=== PATIENT | female | born 1985 | race African-American/Black ===

== ENCOUNTER 2016-11-27 02:19 | Emergency (ER) | payer SELFPAY ==
[~2016-11-27] VITALS: Ht 175.3 cm; Wt 90.7 kg
[~2016-11-27 02:19] MED LIST: CALC1TAB13 PO; CPR500T PO; HYDR1TAB PO; NITR-65 PO; PHEN200T27 PO; PREN1TAB25 PO; depo provera
--- OUTSIDE RECORDS SUMMARY | 2016-11-27 02:25 | XMS REPORT ---
Author Author DREAD PEPE [facility] eClinicalWorks Address Unknown Phone Unavailable Care Team Providers Care Visual Merchandising Director Name Role Phone DREAD PEPE Unavailable Allergies, Adverse Reactions, Alerts Substance Reaction Event Type N.K.D.A. Info Not Available Non Drug Allergy Problems Problem Type Condition Code Onset Dates Condition Status Assessment Unprotected sexual intercourse Z72.51 Active Problem Stress incontinence N39.3 Active Assessment Vaginal discharge N89.8 Active Problem Umbilical hernia without obstruction and without gangrene K42.9 Active Assessment Vaginal itching L29.8 Active Assessment Stress incontinence N39.3 Active Assessment Pelvic pain R10.2 Active Assessment Umbilical hernia without obstruction and without gangrene K42.9 Active Medications Medication Code System Code Instructions Start Date End Date Status Dosage Flagyl [facility] [address]-37 500 MG Orally 2 times a day Mar 12, 2015 Mar 19, 2015 1 tablet Procedures Procedure Coding System Code Date TRICHOMONAS VAGIN, DIR PROBE CPT-4 93324 Mar 12, 2015 URINALYSIS, AUTO, W/O SCOPE CPT-4 94277 Mar 12, 2015 CULTURE, BACTERIA, OTHER CPT-4 83599 Mar 12, 2015 Office Visit, Est Pt., Level 4 CPT-4 45782 Mar 12, 2015 Vital Signs Date/Time: Mar 12, 2015 Temperature 97.7 F Weight 195.8 lbs Height 69 in BMI 28.91 Index Blood Pressure Diastolic 68 mmHg Blood Pressure Systolic 122 mmHg Cardiac Monitoring Heart Rate 74 bpm Results Name Result Date Reference Range Unit Abnormality Flag TRICHOMONAS (IN HOUSE) ----TRICHOMONAS Positive 20150312 ----Control + 20150312 ----Lot # [id number] ----Exp date 20150312 UA LONG DIP (IN HOUSE) ----OLIVER Negative 20150312 ----GLU Negative 20150312 ----SG >=1.030 20150312 ----KET Negative 20150312 ----pH 6.0 20150312 ----Protein Negative 20150312 ----BLO Negative 20150312 ----TERRIE Negative 20150312 ----Color Dark Yellow 20150312 ----Odor None 20150312 ----Exp date 20150312 ----URO 0.2 20150312 ----NIT Negative 20150312 ----Clarity Clear 20150312 ----Lot # [id number] Summary Purpose eClinicalWorks Submission
--- OUTSIDE RECORDS SUMMARY | 2016-11-27 02:26 | XMS REPORT ---
Author Author DASIA MONROE Organization eClinicalWorks Address Unknown Phone Unavailable Care Team Providers Care Laborer Sawmill Name Role Phone DASIA MONROE CP Unavailable Allergies, Adverse Reactions, Alerts Substance Reaction Event Type N.K.D.A. Info Not Available Non Drug Allergy Problems Problem Type Condition Code Onset Dates Condition Status Problem Stress incontinence N39.3 Active Assessment Vaginal discharge N89.8 Active Problem Umbilical hernia without obstruction and without gangrene K42.9 Active Assessment infection, trichomonal A59.00 Active Assessment Other specified bacterial agents as the cause of diseases classified elsewhere B96.89 Active Assessment Acute vaginitis N76.0 Active Medications Medication Code System Code Instructions Start Date End Date Status Dosage Metronidazole [facility] [address]-83 500 MG Orally bid Jan 11, 2016 Jan 21, 2016 1 tablet Procedures Procedure Coding System Code Date PITTS VAG, DNA, DIR PROBE CPT-4 73952 Jan 11, 2016 No Charge CPT-4 74142 Jan 11, [address] [facility] CPT-4 NOBLL Jan 11, 2016 Office Visit, Est Pt., Level 3 CPT-4 43051 Jan 11, 2016 Vital Signs Date/Time: Jan 11, 2016 Cardiac Monitoring Heart Rate 80 bpm Weight 184.0 lbs Height 69 in BMI 27.17 Index Blood Pressure Diastolic 76 mmHg Blood Pressure Systolic 120 mmHg Results Name Result Date Reference Range Unit Abnormality Flag TRICHOMONAS (IN HOUSE) ----TRICHOMONAS POSITIVE 20160111 ----Control + 20160111 ----Lot # [id number] ----Exp date 20160111 BACTERIAL VAGINOSIS (IN HOUSE) ----Exp date 20160111 ----Control + 20160111 ----Lot # [id number] ----RESULTS POSITIVE 20160111 Summary Purpose eClinicalWorks Submission
--- NOTE | 2016-11-27 02:46 | ED Psychosocial ---
General Chief Complaint: Cardiac/General Problems Stated Complaint: SOA DIZZY Source: patient, spouse Exam Limitations: no limitations History of Present Illness Time seen by provider: 02:40 Initial Comments Patient presents to ER with a chief complaint of after getting off work around midnight and heading home she started feeling her heart beating in her chest and a little short of breath and she couldn't get it under control for about an hour. She says she's had episodes like this about a week or 2 ago she began having these for about a month now. She is not taking any medicines form has no radius medical history nor coronary history. No family history of early-onset coronary disease and she does not have blood pressure, thyroid, diabetes disease. She does smoke about a quarter pack a day but does not drink or use drugs. She's never been diagnosed formally with any anxiety or depression. She had no nausea, diarrhea, constipation, dysuria, discharge, pain. Patient states she feels safe at home. Allergies and Home Medications Allergies Coded Allergies: NKANo Known Allergies (Unverified Allergy, Mild, 08/07/08) No Known Drug Allergies (Verified , 11/28/06) Home Medications Calcium/Fa/Multivits-Min 1 Tab.chew Tab.chew, 1 TAB.CHEW PO DAILY, (Reported) Hydroxyzine Pamoate 25 Mg Capsule, 25 MG PO Q6H PRN for ANXIETY, #20 Ref 0 Prescribed by: FARSHAD GARVEY on 11/27/16 0257 Vit#96/Ferrous Fum/Fa 1 Each Tablet, 1 EACH PO DAILY, (Reported) Constitutional: No chills, No diaphoresis, No fever, No malaise EENTM: No ear discharge, No ear pain, No eye pain Respiratory: No cough, No dyspnea on exertion, No orthopnea, No phlegm, short of breath, No wheezing Cardiovascular: No chest pain, No edema, No Hx of Intervention, palpitations, No syncope, No vascular heart diseas Gastrointestinal: No abdominal pain, No constipation, No diarrhea, No heartburn , No loss of appetite, No nausea Genitourinary: No discharge, No dysuria : No (tubal ligation) Control/STD Prophylaxis: Other (tubal ligation) Musculoskeletal: No back pain, No joint pain Skin: No pruritus, No rash Psychiatric/Neurological: Denies Headache, Denies Numbness, Denies Paresthesia Past Dlaobqt-Jbuftf-Edpyer Hx Patient Social History Alcohol Use: Denies Use Recreational Drug Use: No Smoking Status: Current Everyday Smoker (quarter pack per day) Recent Foreign Travel: No Contact w/Someone Who Travel: No Immunizations Up To Date Date of Influenza Vaccine: Apr 27, 2012 Physical Exam Vital Signs Capillary Refill : General Appearance: WD/WN, no apparent distress HEENT: PERRL/EOMI, normal ENT inspection, pharynx normal Neck: non-tender, supple, normal inspection Respiratory: chest non-tender, lungs clear, normal breath sounds Cardiovascular: normal peripheral pulses, regular rate, rhythm, no edema, no murmur Peripheral Pulses: 2+ Radial Pulses (R), 2+ Radial Pulses (L) Gastrointestinal: normal bowel sounds, non tender, soft Extremities: non-tender, no pedal edema, normal capillary refill Neurologic/Psychiatric: alert, normal mood/affect, oriented x 3 Appearance/Memory: appropriate appearance, appropriate insight, neat, no memory impairment Behavior/Eye Contact: cooperative, good eye contact, normal speech Skin: normal color, warm/dry Progress/Results/Core Measures Results/Orders My Orders Orders - FARSHAD GARVEY Ekg Tracing (11/27/16 02:43) Chest 1 View, Ap/Pa Only (11/27/16 02:43) Progress Note : Time: 02:49 Progress Note Presents with a classic appearing panic attack. We'll get an EKG that she had palpitations and a chest x-ray was she was having shortness of breath. If these are normal we'll go ahead and let her have Vistaril and some counseling on cognitive behavioral techniques and recommend her follow up with a primary care physician. ECG Initial ECG Impression Date: Nov 27, 2016 Initial ECG Impression Time: 02:35 Initial ECG Rate: 83 Initial ECG Rhythm: Normal Sinus Initial ECG Intervals: Normal Initial ECG Impression: Normal, Nonspecific Changes Initial ECG Comparisson: No Previous ECG Available Comment No ST elevation or depression. Diagnostic Imaging Diagonstic Imaging: Xray Plain Films/CT/US/NM/MRI: chest Comments No acute cardiopulmonary processes noted. Reviewed: Reviewed by Me Departure Impression Impression: Primary Impression: Panic attack Disposition: 01 HOME, SELF-CARE Condition: Stable Departure-Patient Inst. Decision time for Depature: 02:55 Referrals: NO,LOCAL PHYSICIAN (PCP/Family) Primary Care Physician Patient Instructions: Anxiety, Adult (DC) Add. Discharge Instructions: If you notice these symptoms coming on again such as pounding heart, feeling of loss of control, narrowing vision, feeling panicked then you should remove yourself to a quiet dark location and focus on something that she can control such as or deep breathing exercises like we discussed. Take one tablet of the Vistaril every 6 hours as needed to help with the symptoms. Plan to follow up with her primary care physician in the next couple weeks for further management if this becomes more of a routine pattern. All discharge instructions reviewed with patient and/or family. Voiced understanding. Scripts Hydroxyzine Pamoate (Vistaril) 25 Mg Capsule 25 MG PO Q6H Y for ANXIETY, #20 CAP 0 Refills Prov: FARSHAD GARVEY 11/27/16 FARSHAD GARVEY Nov 27, 2016 02:46
[2016-11-27] MEDS ORDERED: HYDR25CA PO (02:57)
[2016-11-27] MEDS ORDERED: RX-HYDROXYZINE PAMOATE 25 MG CAP #4 PO STA (02:58)
[2016-11-27 03:06] VITALS: BP 162/117
--- NOTE | 2016-11-27 06:46 | Diagnostic Imaging Report ---
Clinical indication: Patient has flutter feeling in chest. Exam: Portable chest x-ray upright view. Comparisons: None. Findings: Lungs/pleura: Lungs are clear. There is no pneumothorax. There is no pleural effusion. Mediastinum: Unremarkable. Pulmonary vasculature: Unremarkable. Heart: Cardiac silhouette size appears mildly enlarged. Bones/extrathoracic soft tissue: Unremarkable. Impression: 1: Cardiac silhouette size appears mildly enlarged. Chest x-ray 2 views would help better evaluate. 2: Otherwise, there is no radiographic evidence of acute cardiopulmonary process. Dictated by: Dictated on workstation # [id number]
== END 2016-11-27 03:19 | disposition home or self-care (01) ==
LOC: EDUNIT# 02:19 → ER 02:22
DX: F41.0 Panic disorder [episodic paroxysmal anxiety] (principal); F17.210 Nicotine dependence, cigarettes, uncomplicated
CPT/HCPCS: 71010; 93005; 99283

== ENCOUNTER 2017-08-07 08:45 | Emergency (ER) | payer SELFPAY ==
[~2017-08-07] VITALS: Ht 175.3 cm; Wt 98.9 kg
[~2017-08-07 08:45] MED LIST changes: +HYDR25CA PO
--- NOTE | 2017-08-07 09:20 | ED EENT ---
History of Present Illness General Chief Complaint: Oral/Throat Problems Stated Complaint: THROAT SORE Source: patient Exam Limitations: no limitations History of Present Illness Date Seen by Provider: August 07, 2017 Time Seen by Provider: 09:06 Initial Comments The patient presents to the ER by private conveyance with a chief complaint of aching up this morning with difficulty swallowing pain in her throat, hoarseness that started sometime yesterday but got worse significantly today. She has taken Excedrin as well as TheraFlu for sore throat with Tylenol. She felt hot like she had fevers yesterday and some today but no chills or sweats. She had some nausea and vomited in the lobby. She's not having any difficulty breathing, or history of asthma. No sick contacts. She does not have any immune altering disease. She denies rash. Allergies and Home Medications Allergies Coded Allergies: NKANo Known Allergies (Unverified Allergy, Mild, 08/07/08) No Known Drug Allergies (Verified , 11/28/06) Home Medications Calcium/Fa/Multivits-Min 1 Tab.chew Tab.chew, 1 TAB.CHEW PO DAILY, (Reported) Hydroxyzine Pamoate 25 Mg Capsule, 25 MG PO Q6H PRN for ANXIETY Prescribed by: FARSHAD GARVEY on 11/27/16 0257 Vit#96/Ferrous Fum/Fa 1 Each Tablet, 1 EACH PO DAILY, (Reported) Patient Home Medication List Home Medication List Reviewed: Yes Review of Systems Constitutional: chills; No diaphoresis; fever, malaise, other (generalized myalgias) Eyes: Denies Blindness, Denies Blurred Vision, Denies Drainage Ears: Denies Dizziness, Denies Pain Nose: denies clots, denies congestion, denies epistaxis Mouth: denies clots, denies pain, denies swelling Throat: pain, swelling, discharge; denies neck stiffness; hoarse; denies aphonia; muffled, painful swallowing Respiratory: No hemoptysis, No orthopnea, No phlegm, No short of breath Cardiovascular: No chest pain, No edema Gastrointestinal: No abdominal pain, No constipation; nausea, vomiting Past Znjdwvs-Nbycmx-Izkpxd Hx Patient Social History Alcohol Use: Regular Use Alcohol Beverage of Choice: Wine Recreational Drug Use: No Smoking Status: Current Everyday Smoker Type Used: Cigarettes Recent Foreign Travel: No Contact w/Someone Who Travel: No Recent Hopitalizations: No Physical Abuse: No Sexual Abuse: No Mistreated: No Fear: No Immunizations Up To Date Date of Influenza Vaccine: Apr 27, 2012 Past Medical History Surgeries: No Respiratory: No Cardiac: No Neurological: No Sexually Transmitted Disease: Yes (HERPES ) Gastrointestinal: No Musculoskeletal: No Endocrine: No HEENT: No Cancer: No Psychosocial: No Nursing Suicide Risk Score: 0 Integumentary: No Blood Disorders: Yes Physical Exam Vital Signs Vital Signs - First Documented 08/07/17 09:10 Temp 98.3 Pulse 114 Resp 20 B/P (MAP) 120/96 (104) Pulse Ox 98 General Appearance: WD/WN, no apparent distress Eyes: bilateral eye normal inspection, bilateral eye PERRL, bilateral eye EOMI Ears: bilateral ear auricle normal, bilateral ear canal normal, bilateral ear TM normal Nose: normal inspection, active bleeding, discharge Mouth/Throat: normal mouth inspection, pharynx normal, dental tenderness Neck: full range of motion, lymphadenopathy (R), tender lateral (r) Cardiovascular: normal peripheral pulses, regular rate, rhythm, no edema, tachycardia Respiratory: no respiratory distress, no accessory muscle use Gastrointestinal: normal bowel sounds, non tender, soft Neurologic/Psychiatric: alert, oriented x 3 Skin: normal color, warm/dry Progress/Results/Core Measures Results/Orders Lab Results Laboratory Tests Test 08/07/17 09:07 08/07/17 09:21 08/07/17 09:30 Range/Units Group A Streptococcus Screen NEGATIVE NEGATIVE White Blood Count 12.3 H 4.3-11.0 10^3/uL Red Blood Count 4.21 L 4.35-5.85 10^6/uL Hemoglobin 10.9 L 11.5-16.0 G/DL Hematocrit 33 L 35-52 % Mean Corpuscular Volume 79 L 80-99 FL Mean Corpuscular Hemoglobin 26 25-34 PG Mean Corpuscular Hemoglobin Concent 33 32-36 G/DL Red Cell Distribution Width 16.9 H 10.0-14.5 % Platelet Count 279 130-400 10^3/uL Mean Platelet Volume 9.7 7.4-10.4 FL Neutrophils (%) (Auto) 85 H 42-75 % Lymphocytes (%) (Auto) 6 L 12-44 % Monocytes (%) (Auto) 8 0-12 % Eosinophils (%) (Auto) 1 0-10 % Basophils (%) (Auto) 0 0-10 % Neutrophils # (Auto) 10.5 H 1.8-7.8 X 10^3 Lymphocytes # (Auto) 0.7 L 1.0-4.0 X 10^3 Monocytes # (Auto) 1.0 0.0-1.0 X 10^3 Eosinophils # (Auto) 0.1 0.0-0.3 10^3/uL Basophils # (Auto) 0.0 0.0-0.1 10^3/uL Neutrophils % (Manual) 84 % Lymphocytes % (Manual) 7 % Monocytes % (Manual) 4 % Eosinophils % (Manual) 0 % Basophils % (Manual) 0 % Band Neutrophils 5 % Anisocytosis SLIGHT Microcytosis SLIGHT Sodium Level 134 L 135-145 MMOL/L Potassium Level 4.0 3.6-5.0 MMOL/L Chloride Level 103 98-107 MMOL/L Carbon Dioxide Level 16 L 21-32 MMOL/L Anion Gap 15 H 5-14 MMOL/L Blood Urea Nitrogen 11 7-18 MG/DL Creatinine 0.94 0.60-1.30 MG/DL Estimat Glomerular Filtration Rate > 60 BUN/Creatinine Ratio 12 Glucose Level 99 70-105 MG/DL Lactic Acid Level 1.19 0.50-2.00 MMOL/L Calcium Level 9.1 8.5-10.1 MG/DL Total Bilirubin 1.0 0.1-1.0 MG/DL Aspartate Amino Transf (AST/SGOT) 31 5-34 U/L Alanine Aminotransferase (ALT/SGPT) 32 0-55 U/L Alkaline Phosphatase 74 40-136 U/L C-Reactive Protein High Sensitivity 11.58 H 0.00-0.50 MG/DL Total Protein 7.8 6.4-8.2 GM/DL Albumin 4.4 3.2-4.5 GM/DL My Orders Orders - FARSHAD GARVEY Cbc With Automated Diff (08/07/17 09:13) Comprehensive Metabolic Panel (08/07/17 09:13) Hs C Reactive Protein (08/07/17 09:13) Lactic Acid Analyzer (08/07/17 09:13) Rapid Strep A Screen (08/07/17 09:13) Urine Bedside (08/07/17 09:13) Ct Neck (Soft Tissue) W (08/07/17 09:21) Blood Culture (08/07/17 09:21) Protime With Inr (08/07/17:21) Partial Thromboplastin Time (08/07/17:21) Ondansetron Injection (Zofran Injectio (08/07/17 09:30) Saline Lock/Iv-Start (08/07/17 09:21) Vital Signs Adult Sepsis Patie Q1H (08/07/17 09:21) Remove Rings In Anticipation O (08/07/17 09:21) Lactated Ringers (Lr 1000 Ml Iv Solution (08/07/17 09:21) Ceftriaxone Injection (Rocephin Injectio (08/07/17 09:30) Fentanyl Injection (Sublimaze Injection (08/07/17 09:30) Manual Differential (08/07/17 09:30) Iohexol Injection (Omnipaque 350 Mg/Ml 1 (08/07/17 10:30) Ns (Ivpb) (Sodium Chloride 0.9%) (08/07/17 10:30) Pharmacy Communication (Pharmacy Communi (08/07/17 10:16) Sodium Chloride Flush (Catheter Flush Sy (08/07/17 10:30) Ketorolac Injection (Toradol Injection) (08/07/17 11:00) Medications Given in ED Current Medications Medications Dose Ordered Sig/Jamila Route Start Time Stop Time Status Last Admin Dose Admin Ceftriaxone Sodium 1000 mg/ Sodium Chloride 50 ml @ 200 mls/hr ONCE ONCE IV 08/07/17 09:30 08/07/17 09:44 DC 08/07/17 10:15 200 MLS/HR Fentanyl Citrate 50 mcg ONCE ONCE IVP 08/07/17 09:30 08/07/17 09:31 DC 08/07/17 09:42 50 MCG Iohexol 75 ml ONCE ONCE IV 08/07/17 10:30 08/07/17 10:31 DC 08/07/17 10:36 75 ML Lactated Ringer's 1,000 ml @ 0 mls/hr Q0M ONCE IV 08/07/17 09:21 08/07/17 09:26 DC 08/07/17 09:43 0 MLS/HR Ondansetron HCl 4 mg ONCE PRN IVP 08/07/17 09:30 08/07/17 09:43 DC 08/07/17 09:42 4 MG Sodium Chloride 10 ml NEEDED PRN IV 08/07/17 10:30 08/07/17 10:36 10 ML Sodium Chloride 250 ml ONCE ONCE IV 08/07/17 10:30 08/07/17 10:31 DC 08/07/17 10:36 80 ML Vital Signs/I&O 08/07/17 09:10 Temp 98.3 Pulse 114 Resp 20 B/P (MAP) 120/96 (104) Pulse Ox 98 Progress Progress Note : Time: 09:20 Progress Note Patient has a history of fever, tachycardia on the monitor presently and continues to have nausea. Has been concern for sepsis possible abscess there is a protruding tonsil that's to the midline of her throat and it is definitely altering her voice. We'll get a CT soft tissue of the neck. Diagnostic Imaging Diagonstic Imaging: CT Plain Films/CT/US/NM/MRI: other (soft tissue neck without contrast) Comments VIA [facility]. [place], [place] NAME: JARED HINDS [facility] REC#: [id number] PT STATUS: REG ER : 1985 PHYSICIAN: FARSHAD GARVEY MD ADMIT DATE: 08/07/17/ER Draft Date of Exam:08/07/17 CT NECK (SOFT TISSUE) W CLINICAL INDICATION: Patient with swollen throat and hard to swallow x1 day. Patient states feeling hot/cold. EXAM: CT scan of the neck soft tissue performed with 75 cc of Omnipaque 350 IV contrast. Sagittal and coronal reformatted images are created. COMPARISON: None. FINDINGS: There is soft tissue enlargement and heterogeneous enhancement of the bilateral palatine tonsils (right side more than the left). There is no evidence of retropharyngeal or peritonsillar abscess. There is also enlargement of the posterior nasopharyngeal adenoid soft tissue. There is mild prominence of the posterior lingual tonsillar tissue. There is mildly prominent bilateral neck lymph nodes (right side more than the left) largest lymph node measures 2.3 cm x 1.8 cm in the right level 2a region. The bilateral salivary glands are unremarkable. The visualized portions of the tongue, oral cavity, sublingual and submandibular regions are grossly unremarkable. Thyroid gland shows a partially visualized at least 5 mm low-density nodule in the right thyroid gland. Remainder of the neck soft tissue structures are unremarkable. There is abnormal kyphosis of the cervical spine posture which is centered at the C5 level. Cervical spine is otherwise unremarkable. Visualized upper lung tompkins are clear. IMPRESSION: 1: There is enlargement of the bilateral palatine tonsils (right side more than the left) with mild to moderate narrowing of the airway. These findings are concerning for tonsillitis. There is no peritonsillar or retropharyngeal abscess. 2: There is also mild prominence of the posterior nasopharyngeal adenoid soft tissue and lingual tonsillar tissue which may be reactive or from infectious process. 3: There is mild bilateral lymphadenopathy (right side more than the left). Dictated on workstation # [id number] Dict: 08/07/17 1041 Trans: 08/07/17 1051 [facility] [id number] Interpreted by: MIKE BURGER MD Electronically signed by: Reviewed: Reviewed by Me Departure Impression Primary Impression: Streptococcal tonsillitis Additional Impression: Microcytic anemia Disposition: 01 HOME, SELF-CARE Condition: Improved Departure-Patient Inst. Decision time for Depature: 11:26 Referrals: NO,LOCAL PHYSICIAN (PCP/Family) Primary Care Physician Patient Instructions: Strep Throat (DC) Add. 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 If you have difficulty breathing or your symptoms are getting worse you should return to care. Take your antibiotics to completion. You can use salt water gargles for the swelling as well as hot tea, teaspoon of honey etc. 1000 g of Tylenol and or 800 mg ibuprofen every 8 hours. Drink plenty of fluids. After you're no longer sick; your hemoglobin was a little bit low, which is probably from iron deficiency this is most commonly seen from heavy menses and women. Start taking an hdws-zkg-dnnnnbe iron tablet twice a day and make a follow-up appointment to have this worked up more appropriately by primary care doctor at your leisure within the next few months. All discharge instructions reviewed with patient and/or family. Voiced understanding. Scripts Ondansetron (Ondansetron Odt) 4 Mg Tab.rapdis 4 MG PO Q6H PRN for NAUSEA/VOMITING, #8 TAB 0 Refills Prov: FARSHAD GARVEY 08/07/17 Amoxicillin (Amoxicillin) 500 Mg Capsule 500 MG PO BID for 10 Days, #20 CAP 0 Refills Prov: FARSHAD GARVEY 08/07/17 Ferrous Sulfate (Feosol) 325 Mg Tablet 325 MG PO BID for 30 Days, #60 TAB 0 Refills Prov: FARSHAD GARVEY 08/07/17 FARSHAD GARVEY August 07, 2017 09:20
[2017-08-07] MEDS ORDERED: LACTATED RINGERS 1,000 ML IV ONE (09:21)
[2017-08-07] MEDS ORDERED: cefTRIAXone INJECTION 1,000 MG in NS (IVPB) 50 ML IV ONE (09:30)
[2017-08-07] MEDS ORDERED: fentaNYL INJECTION 100 MCG/2 ML AMP IVP ONE (09:30)
[2017-08-07] MEDS ORDERED: ONDANSETRON 4 MG/2 ML (SDV) Z0FRAN IVP PRN (09:30)
[2017-08-07 09:48] LABS: BASOPHILS % (AUTO) 0 % (0-10); EOSINOPHILS # (AUTO) 0.1 10^3/uL (0.0-0.3); EOSINOPHILS % (AUTO) 1 % (0-10); HEMATOCRIT 33 % (35-52); HEMOGLOBIN 10.9 G/DL (11.5-16.0); LYMPHOCYTES # (AUTO) 0.7 X 10^3 (1.0-4.0); LYMPHOCYTES % (AUTO) 6 % (12-44); MEAN CORPUSCULAR HEMOGLOBIN 26 PG (25-34); MEAN CORPUSCULAR HGB CONC 33 G/DL (32-36); MEAN CORPUSCULAR VOLUME 79 FL (80-99); MEAN PLATELET VOLUME 9.7 FL (7.4-10.4); MONOCYTES % (AUTO) 8 % (0-12); NEUTROPHILS # (AUTO) 10.5 X 10^3 (1.8-7.8); NEUTROPHILS % (AUTO) 85 % (42-75); PLATELET COUNT 279 10^3/uL (130-400); RED BLOOD COUNT 4.21 10^6/uL (4.35-5.85); RED CELL DISTRIBUTION WIDTH 16.9 % (10.0-14.5); WHITE BLOOD COUNT 12.3 10^3/uL (4.3-11.0)
[2017-08-07 10:07] LABS: ALANINE AMINOTRANSFERASE 32 U/L (0-55); ALBUMIN 4.4 GM/DL (3.2-4.5); ALKALINE PHOSPHATASE 74 U/L (40-136); BUN/CREATININE RATIO 12; CALCIUM 9.1 MG/DL (8.5-10.1); CARBON DIOXIDE 16 MMOL/L (21-32); CHLORIDE 103 MMOL/L (98-107); CREATININE SERUM 0.94 MG/DL (0.60-1.30); GFR ESTIMATED > 60; GLUCOSE 99 MG/DL (70-105); SODIUM 134 MMOL/L (135-145); TOTAL PROTEIN 7.8 GM/DL (6.4-8.2)
[2017-08-07] MEDS ORDERED: NS 250 ML (IVPB) BAG IV ONE (10:30)
[2017-08-07] MEDS ORDERED: CATHETER FLUSH 10 ML SYR IV PRN (10:30)
[2017-08-07] MEDS ORDERED: IOHEXOL 350 MG/ML 100 ML (OMNIPAQUE 350) VIAL IV ONE (10:30)
[2017-08-07 10:47] LABS: ANISOCYTOSIS SLIGHT; BAND NEUTROPHILS 5 %; BASOPHILS % (MANUAL) 0 %; EOSINOPHILS % (MANUAL) 0 %; LYMPHOCYTES % (MANUAL) 7 %; MICROCYTOSIS SLIGHT; MONOCYTES % (MANUAL) 4 %; NEUTROPHILS % (MANUAL) 84 %
--- NOTE | 2017-08-07 10:52 | Diagnostic Imaging Report ---
CLINICAL INDICATION: Patient with swollen throat and hard to swallow x1 day. Patient states feeling hot/cold. EXAM: CT scan of the neck soft tissue performed with 75 cc of Omnipaque 350 IV contrast. Sagittal and coronal reformatted images are created. COMPARISON: None. FINDINGS: There is soft tissue enlargement and heterogeneous enhancement of the bilateral palatine tonsils (right side more than the left). There is no evidence of retropharyngeal or peritonsillar abscess. There is also enlargement of the posterior nasopharyngeal adenoid soft tissue. There is mild prominence of the posterior lingual tonsillar tissue. There is mildly prominent bilateral neck lymph nodes (right side more than the left) largest lymph node measures 2.3 cm x 1.8 cm in the right level 2a region. The bilateral salivary glands are unremarkable. The visualized portions of the tongue, oral cavity, sublingual and submandibular regions are grossly unremarkable. Thyroid gland shows a partially visualized at least 5 mm low-density nodule in the right thyroid gland. Remainder of the neck soft tissue structures are unremarkable. There is abnormal kyphosis of the cervical spine posture which is centered at the C5 level. Cervical spine is otherwise unremarkable. Visualized upper lung tompkins are clear. IMPRESSION: 1: There is enlargement of the bilateral palatine tonsils (right side more than the left) with mild to moderate narrowing of the airway. These findings are concerning for tonsillitis. There is no peritonsillar or retropharyngeal abscess. 2: There is also mild prominence of the posterior nasopharyngeal adenoid soft tissue and lingual tonsillar tissue which may be reactive or from infectious process. 3: There is mild bilateral lymphadenopathy (right side more than the left). Dictated by: Dictated on workstation # [id number]
[2017-08-07] MEDS ORDERED: KETOROLAC 30 MG/ML VIAL IVP ONE (11:00)
[2017-08-07] MEDS ORDERED: FERR-65 PO (11:29)
[2017-08-07] MEDS ORDERED: ONDA4TAB11 PO (11:29)
[2017-08-07] MEDS ORDERED: AMOX500C2 PO (11:29)
[2017-08-07 11:55] VITALS: BP 123/87
== END 2017-08-07 11:55 | disposition home or self-care (01) ==
LOC: EDUNIT# 08:45 → ER 08:48
DX: J03.00 Acute streptococcal tonsillitis, unspecified (principal); D50.9 Iron deficiency anemia, unspecified; F17.210 Nicotine dependence, cigarettes, uncomplicated; Z86.19 Personal history of other infectious and parasitic diseases
CPT/HCPCS: 70491; 80053; 83605; 85007; 85027; 86141; 87040; 87430; 96374; 96375

== ENCOUNTER 2022-10-20 11:37 | Emergency (ER) | payer MEDICAID ==
[~2022-10-20] VITALS: Ht 175.2 cm; Wt 98.8 kg
[~2022-10-20 11:37] MED LIST changes: +AMOX500C2 PO; +FERR-65 PO; +ONDA4TAB11 PO
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
[2022-10-20 12:13] VITALS: BP 169/119
== END 2022-10-20 12:13 | disposition home or self-care (01) ==
LOC: EDUNIT# 11:37 → ER 11:41
DX: M79.18 Myalgia, other site (principal); M54.2 Cervicalgia; M25.552 Pain in left hip; R51.9 Headache, unspecified; V49.49XA Driver injured in collision with other motor vehicles in traffic accident, initial encounter; Y92.410 Unspecified street and highway as the place of occurrence of the external cause
CPT/HCPCS: 99282